=== PATIENT | female | born 1970 | race Caucasian/White ===

== ENCOUNTER → 2016-10-17 | Outpatient (CLI) | payer BC | LOC: MC.RAD 13:44 | DX: Z12.31 Encounter for screening mammogram for malignant neoplasm of breast (principal) ==

== ENCOUNTER → 2018-03-19 | Outpatient (CLI) | payer BC | LOC: COL.RAD 13:35 | DX: M99.71 Connective tissue and disc stenosis of intervertebral foramina of cervical region (principal); Z98.890 Other specified postprocedural states | CPT/HCPCS: A9585 ==

== ENCOUNTER → 2018-06-30 | Outpatient (CLI) | payer BC | LOC: COL.RAD 07:18 | DX: M51.16 Intervertebral disc disorders with radiculopathy, lumbar region (principal); Z98.890 Other specified postprocedural states | CPT/HCPCS: A9585 ==

== ENCOUNTER → 2021-03-20 | Outpatient (CLI) | payer BC ==
[~2021-03-20] VITALS: Ht 160 cm; Wt 103.9 kg
[~2021-03-20] MED LIST: 00186-0370-20 IH; ALBUTEROL0.83 MG/ML IH; KLONOPIN 1MG1 MG PO; LEXAPRO20 MG PO; LIPITOR20 MG PO; PERCOCET 325 MG1 TA2 PO; PRILOSEC 20MG20 MG PO
[2021-03-20 05:58] VITALS: BP 121/79; PULSE 67; TEMP 98
[2021-03-20 07:15] VITALS: BP 108/69; PULSE 65
[2021-03-20 07:16] VITALS: BP 163/97; PULSE 89
[2021-03-20 07:17] VITALS: BP 162/94; PULSE 91
[2021-03-20 07:18] VITALS: BP 142/88; PULSE 87
[2021-03-20 07:19] VITALS: BP 141/87; PULSE 87
== END ==
LOC: COL.CARD 05:35
DX: R06.00 Dyspnea, unspecified (principal)
CPT/HCPCS: A9500; J2785

== ENCOUNTER → 2021-07-19 | Outpatient (CLI) | payer BC | LOC: MC.RAD 13:02 | DX: Z12.31 Encounter for screening mammogram for malignant neoplasm of breast (principal) ==

== ENCOUNTER → 2021-07-31 | Outpatient (CLI) | payer BC | LOC: COL.RAD 13:30 | DX: N26.1 Atrophy of kidney (terminal) (principal); Z90.49 Acquired absence of other specified parts of digestive tract | CPT/HCPCS: Q9967 ==